=== PATIENT | female | born 1960 | race Caucasian/White ===

== ENCOUNTER → 2018-06-02 | Outpatient (CLI) | payer BC | END | disposition home or self-care (01) | LOC: CFH 08:52 | PROVIDERS: ATTEND Physician Assistant | DX: E04.2 Nontoxic multinodular goiter (principal); E03.9 Hypothyroidism, unspecified | CPT/HCPCS: 76536 ==

== ENCOUNTER → 2018-07-15 | Outpatient (CLI) | payer BC | END | disposition home or self-care (01) | LOC: CFH 13:26 | PROVIDERS: ATTEND Internal Medicine Cardiovascular Disease | DX: I11.9 Hypertensive heart disease without heart failure (principal); I25.2 Old myocardial infarction; E78.5 Hyperlipidemia, unspecified; Z87.891 Personal history of nicotine dependence | CPT/HCPCS: 93306 ==

== ENCOUNTER → 2018-10-02 | Outpatient (CLI) | payer BC | END | disposition home or self-care (01) | LOC: CFH 06:56 | PROVIDERS: ATTEND Physician Assistant | DX: M75.52 Bursitis of left shoulder (principal); M75.102 Unspecified rotator cuff tear or rupture of left shoulder, not specified as traumatic; M19.012 Primary osteoarthritis, left shoulder ==

== ENCOUNTER 2019-12-10 13:21 | Emergency (ER) | payer BC ==
[~2019-12-10] VITALS: Ht 154.9 cm; Wt 67.3 kg
--- NOTE | 2019-12-10 13:42 | NUR ---
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
--- NOTE | 2019-12-10 14:00 | NUR ---
THIS IS A 59 YO F W/ C/O LEFT SIDED CP THAT LASTED A FEW MINUTES AT ABOUT 1300. RADIATED TO JAW, REPORTS SOB. HAS SINCE RESOLVED. HX:LA 2012. AT BEDSIDE. VS STABLE. PT CONNECTED TO ALL MONITORING. FAMILY AT BEDSIDE AND CALL LIGHT IN REACH.
--- NOTE | 2019-12-10 14:19 | NUR ---
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 UPDATED , INSTRUCTED TO HOLD DOSE.
[2019-12-10 14:29] LABS: BASOPHILS # (AUTO) 0.04 x10^3/uL (0-0.1); BASOPHILS % (AUTO) 1 % (0-1); EOSINOPHILS # (AUTO) 0.14 x10^3/uL (0-0.4); EOSINOPHILS % (AUTO) 2 % (1-7); LYMPHOCYTES # (AUTO) 1.71 x10^3/uL (1-3.4); LYMPHOCYTES % (AUTO) 29 % (22-44); MD NO; MEAN CORPUSCULAR HGB CONC 33.6 g/dL (32.4-35.8); MEAN CORPUSCULAR VOLUME 89.3 fL (80-100); MEAN PLATELET VOLUME 6.9 fL (7.4-10.4); MONOCYTES # (AUTO) 0.42 x10^3/uL (0.2-0.8); MONOCYTES % (AUTO) 7 % (2-9); NEUTROPHILS # (AUTO) 3.54 x10^3/uL (1.8-6.8); NEUTROPHILS % (AUTO) 61 % (42-75); PLATELET COUNT 464 x10^3/uL (130-400); RED BLOOD COUNT 4.13 x10^6/uL (3.82-5.3)
[2019-12-10] MEDS ORDERED: ASPIRIN 81 MG TABLET CHEW PO ONE (14:30)
[2019-12-10 14:42] LABS: ALBUMIN 3.5 g/dL (3.4-5.0); ANION GAP 7 mmol/L (5-15); CALCIUM 8.8 mg/dL (8.5-10.1); CHLORIDE 110 mmol/L (98-107); CREATININE 0.83 mg/dL (0.55-1.02)
[2019-12-10 14:46] LABS: TROPONIN I < 0.015 ng/mL (0.000-0.045)
[2019-12-10 16:42] VITALS: BP 113/61
--- NOTE | 2019-12-10 16:43 | NUR ---
PT RESTING ON GURNEY W/ CALL LIGHT IN REACH. VS STABLE. AWAITING REDRAW TROPONIN AT 1720. PT AWARE OF POC. DENIES FURTHER NEEDS AT THIS TIME.
[2019-12-10 17:24] LABS: TROPONIN I < 0.015 ng/mL (0.000-0.045)
--- NOTE | 2019-12-10 17:39 | NUR ---
ALL TESTS RESULTED. PT IS UP FOR RECHECK AT THIS TIME.
--- NOTE | 2019-12-10 18:15 | NUR ---
Patient given discharge instructions and they have confirmed that they understand the instructions. Patient ambulatory with steady gait.
== END 2019-12-10 18:16 | disposition home or self-care (01) ==
LOC: ED 17:55
DX: R07.89 Other chest pain (principal); I10 Essential (primary) hypertension; E78.5 Hyperlipidemia, unspecified; E11.9 Type 2 diabetes mellitus without complications; K21.9 Gastro-esophageal reflux disease without esophagitis; Z98.61 Coronary angioplasty status
CPT/HCPCS: 36415; 71045; 80048; 82040; 83880; 84484; 85025; 85379; 93005; 99285

== ENCOUNTER → 2021-05-10 | Outpatient (CLI) | payer BC | END | disposition home or self-care (01) | LOC: CFH 07:42 | PROVIDERS: ATTEND Internal Medicine Cardiovascular Disease | DX: I25.9 Chronic ischemic heart disease, unspecified (principal); I10 Essential (primary) hypertension; I25.10 Atherosclerotic heart disease of native coronary artery without angina pectoris; I25.2 Old myocardial infarction | CPT/HCPCS: 78452; 93017; 93306; 93356; A9502 ==